=== PATIENT | female | born 1970 | race Two or more races ===

== ENCOUNTER 2016-06-14 22:23 | Emergency (ER) | payer OTHER ==
--- NOTE | ~2016-06-14 | CT98 ---
[facility] A Service [facility] RADIOLOGY TEXT RESULTS PATIENT: AMPARO MANRIQUE LOCATION: SED : 66 UNIT #: [id number] AGE: [address]: Mehdi Corbett SEX: F ORDER DR: [id number] [address] [address] [id number] MR#: [id number] Acc #: [id number] NAME: AMPARO MANRIQUE : 1970 SEX: F STUDY DATE/TIME: 06/14/2016 22:35 UNIT: SED ROOM: STUDY DESCRIPTION: CT Lumbar Spine Wo Cont Attending Physician: Mehdi Corbett P.A.-C. Ordering Physician: Mehdi Corbett P.A.-C. MEDICAL IMAGING REPORT This report is preliminary unless electronic signature is present. EXAM CT lumbar spine without contrast. DATE 06/14/2016 HISTORY 45-year-old female with back pain rating to the right leg for 1 month. No documented injury. COMPARISON CT abdomen and pelvis bone windows, 01/03/2008. PROCEDURE 2 mm noncontrast axial images through the lumbar spine without contrast. Sagittal and coronal reformatted images were obtained. This CT exam was performed with one or more of the following radiation dose reduction techniques: automatic exposure control, adjustment of mA and/or kV according to patient size, and iterative reconstruction. FINDINGS No acute lumbar spine fracture or subluxation is seen. Mild diminished disc height is present at L5-S1. Small central posterior disc osteophyte formation is present at T11-12 resulting in mild central canal stenosis but no significant neural foraminal narrowing. At T12-L1, there is mild posterior disc osteophyte formation centrally, resulting in borderline to mild central canal stenosis but no significant neural foraminal stenosis is seen. At L1-2, no significant disc bulge, canal or foraminal stenosis. [facility] A Service [facility] RADIOLOGY TEXT RESULTS PATIENT: AMPARO MANRIQUE LOCATION: SED : 66 UNIT #: [id number] AGE: [address]: Mehdi Corbett SEX: F ORDER DR: At L2-3, no significant disc bulge, canal or foraminal stenosis. At L3-4, there is very mild left paracentral to lateral recess disc bulge resulting in minimal left neural foraminal narrowing but no significant canal stenosis. No right neural foraminal narrowing. At L4-5, there is very mild concentric disc bulge slightly eccentric to the left subarticular to paravertebral region. No significant canal stenosis. Very mild left inferior neural foraminal narrowing. Right neural foramen appears patent. At L5-S1, posterior disc osteophyte formation is present centrally. It effaces epidural fat anterior to the thecal sac. Additionally, a more focal superimposed disc protrusion extends to the right of midline measuring 9 x 9 mm and appears to indent the right S1 nerve root within the canal. The disc osteophyte formation also appears to be just barely indent or displace the left S1 nerve roots within the canal slightly more superiorly. Incompletely imaged 2.5 cm left pelvic cystic lesion, potentially representing an ovarian cyst, nonspecific. IMPRESSION 1. No acute lumbar spine fracture or subluxation. 2. Degenerative changes in the lumbar spine, greatest at L5-S1. At L5-S1, there is posterior disc osteophyte formation which appears to just barely indent the left S1 nerve root in the canal. More prominently, there is more focal 9 x 9 mm right paracentral disc protrusion which appears to significantly displace the right S1 nerve root within the canal. Correlate for radiculopathy symptoms in this distribution. 3. Incompletely imaged 2.5 cm left pelvic cystic lesion, favored to represent an ovarian cyst. This can be correlated to pelvic ultrasound on a nonemergent basis if deemed clinically appropriate. Dictated by... Cristal Ordaz M.D. THIS IS AN ELECTRONICALLY VERIFIED REPORT Cristal Ordaz M.D. at 06/16/2016 1:52 AM EDWIN/karl TD: 06/15/2016 10:36 JOB #: [id number] MEDICAL IMAGING REPORT
[~2016-06-14 22:23] MED LIST: AMOXICILLIN500 M1; ANTIINFLAMMATORY MED; MELOXICAM15 MG; NO MEDICATIONS
== END 2016-06-15 00:45 | disposition home or self-care (01) ==
LOC: SED 22:23
DX: M54.16 Radiculopathy, lumbar region (principal); F17.200 Nicotine dependence, unspecified, uncomplicated; Z88.5 Allergy status to narcotic agent
CPT/HCPCS: 72131; 99284